=== PATIENT | female | born 1960 | race Caucasian/White ===

== ENCOUNTER 2021-11-17 11:27 | Outpatient (CLI) | payer OTHER, SELFPAY ==
[2021-11-17 11:42] VITALS: BP 149/95; PULSE 107; RESP 18; TEMP 37; O2SAT 99; BMI 38.4
[2021-11-17 13:02] VITALS: BP 139/95; PULSE 89; RESP 18; TEMP 36.8; O2SAT 98
[2021-11-17 14:00] VITALS: BP 136/92; PULSE 95; RESP 19; TEMP 36.8; O2SAT 96
== END 2021-11-17 11:28 | disposition home or self-care (01) ==
LOC: OPS 11:33
PROVIDERS: PCP Internal Medicine; Visit Provider Internal Medicine
DX: U07.1 COVID-19 (principal)
CPT/HCPCS: 96365